=== PATIENT | female | born 1965 ===

== ENCOUNTER 2022-05-23 06:09 | Observation (INO) ==
[~2022-05-23 06:09] MED LIST: LACTATED RINGERS 1,000 ML IV SCH; cefOXitin 1,000 MG in SODIUM CHLORIDE 0.9% 100 ML IV ONE
[2022-05-23] MEDS ORDERED: MIDAZOLAM 2 MG/2 ML VIAL ONE (06:19)
[2022-05-23] MEDS ORDERED: fentaNYL 100 MCG/2 ML VIAL ONE (06:19)
[2022-05-23] MEDS ORDERED: propofoL 200 MG/20 ML VIAL IV ONE (06:20)
[2022-05-23] MEDS ORDERED: LIDOCAINE 2% 5 ML VIAL ONE (06:20)
[2022-05-23] MEDS ORDERED: LIDOCAINE 1%/EPI INJ 20 ML VIAL ONE (06:31)
[2022-05-23] MEDS ORDERED: TISSUE ADHESIVE 1 EACH APPLICATOR TOP ONE (06:31)
[2022-05-23] MEDS ORDERED: ROCURONIUM 50 MG/5 ML VIAL IV ONE (06:45)
[2022-05-23 06:50] LABS: Basophils # 0.1 10*3/uL (0.0-0.2); Basophils % 0.3 % (0.0-0.8); Eosinophils # 1.1 10*3/uL (0.0-0.87); Eosinophils % 4.6 % (0.00-10.9); Hematocrit 32.1 VOL% (35.7-47.0); Hemoglobin 10.2 GM/DL (12.0-16.0); Immature Granulocytes % 4.3 %; Immature Granulocytes Absolute 1.01 #; Lymphocytes # 1.7 10*3/uL (1.4-4.0); Lymphocytes % 7.1 % (21.3-54.2); Mean Corpuscular HGB Conc 31.8 GM/DL (32-36); Mean Corpuscular Volume 98.8 FL (87-102); Mean Platelet Volume 9.1 FL (9.6-12.0); Monocytes # 1.2 10*3/uL (0.11-0.8); Monocytes % 5.2 % (1.7-12.7); Neutrophils % 78.5 % (38.7-73.9); Platelet Count 637 T/CUMM (130-400); Red Blood Count 3.25 MC/CUMM (3.8-5.5); Red Cell Distribution Width 14.2 % (9.3-17.3); White Blood Count 23.6 T/CUMM (4-12)
[2022-05-23 07:11] LABS: Band Neutrophils 1 % (0-10); Eosinophils 3 % (0-10); Lymphocytes 8 % (20-55); Myelocytes 2 %; Total Cells Counted 100
[2022-05-23 07:12] LABS: Hypochromia Slight; Macrocytosis Slight
[2022-05-23] MEDS ORDERED: ONDANSETRON 4 MG/2 ML VIAL ONE (07:15)
[2022-05-23] MEDS ORDERED: DEXAMETHASONE 4 MG/1 ML VIAL ONE (07:15)
[2022-05-23] MEDS ORDERED: SODIUM CHLORIDE 0.9% 1,000 ML IV ONE (07:23)
[2022-05-23] MEDS ORDERED: PHENYLEPHRINE 1 MG/10 ML SYRINGE IV ONE (07:24)
[2022-05-23] MEDS ORDERED: SEVOFLURANE 1 UNIT/15 MINUTE INH ONE (07:24)
[2022-05-23] MEDS ORDERED: NEOSTIGMINE 10 MG/10 ML VIAL ONE (07:24)
[2022-05-23 07:27] LABS: Calcium 8.9 MG/DL (8.5-10.1); Osmolality,Calculated 298.7 MOS/KG (273-304); Potassium 3.9 MMOL/L (3.5-5.1)
[2022-05-23] MEDS ORDERED: GLYCOPYRROLATE 0.4 MG/2 ML VIAL ONE (07:27)
[2022-05-23] MEDS ORDERED: HYDROmorphone 1 MG/1 ML SYRINGE IV PRN (08:25)
[2022-05-23] MEDS ORDERED: ALBUTEROL/IPRATROPIUM 3 ML NEB RESP TX PRN (08:25)
[2022-05-23] MEDS ORDERED: ONDANSETRON 4 MG/2 ML VIAL IV PRN (08:25)
[2022-05-23] MEDS ORDERED: ACETAMINOPHEN 325 MG TABLET PO PRN (08:25)
[2022-05-23] MEDS ORDERED: ALBUTEROL 2.5 MG/3 ML NEB RESP TX PRN (08:27)
[2022-05-23] MEDS: cefOXitin 1,000 MG in SODIUM CHLORIDE 0.9% 100 ML IV SCH ×2 (12:30→17:43)
[2022-05-23] MEDS: METOPROLOL TARTRATE 25 MG TABLET PO SCH ×2 (12:38→21:25)
[2022-05-23] MEDS: LACTATED RINGERS 1,000 ML IV SCH ×2 (12:38→17:43)
[2022-05-23] MEDS: PANTOPRAZOLE 40 MG TABLET PO SCH (12:39)
[2022-05-23] MEDS: ASPIRIN EC 81 MG TABLET PO SCH (14:54)
[2022-05-23] MEDS: LOSARTAN 50 MG TABLET PO SCH (14:54)
[2022-05-23] MEDS: BUDESONIDE/FORMOTEROL 80-4.5 INHALER 6.9 GM INH SCH (21:25)
[2022-05-24] MEDS: cefOXitin 1,000 MG in SODIUM CHLORIDE 0.9% 100 ML IV SCH ×5 (00:48→23:08)
[2022-05-24] MEDS: LACTATED RINGERS 1,000 ML IV SCH ×3 (02:56→21:20)
[2022-05-24] MEDS: ENOXAPARIN 40 MG/0.4 ML SYRINGE SUBCUT SCH (05:53)
[2022-05-24 06:11] LABS: Basophils # 0.1 10*3/uL (0.0-0.2); Basophils % 0.3 % (0.0-0.8); Eosinophils # 0.8 10*3/uL (0.0-0.87); Eosinophils % 3.4 % (0.00-10.9); Hemoglobin 9.5 GM/DL (12.0-16.0); Immature Granulocytes % 4.3 %; Immature Granulocytes Absolute 1.05 #; Lymphocytes # 2.4 10*3/uL (1.4-4.0); Mean Corpuscular HGB Conc 30.6 GM/DL (32-36); Mean Platelet Volume 9.5 FL (9.6-12.0); Monocytes # 1.5 10*3/uL (0.11-0.8); Monocytes % 6.4 % (1.7-12.7); Neutrophils % 75.6 % (38.7-73.9); Platelet Count 687 T/CUMM (130-400); Red Cell Distribution Width 14.5 % (9.3-17.3); White Blood Count 24.2 T/CUMM (4-12)
[2022-05-24 06:20] LABS: Calcium 8.6 MG/DL (8.5-10.1); Osmolality,Calculated 293.5 MOS/KG (273-304); Potassium 4.1 MMOL/L (3.5-5.1)
[2022-05-24 06:55] LABS: Eosinophils 1 % (0-10); Lymphocytes 9 % (20-55); Platelet Estimate Increased; Total Cells Counted 100
[2022-05-24] MEDS: PANTOPRAZOLE 40 MG TABLET PO SCH (08:51)
[2022-05-24] MEDS: LOSARTAN 50 MG TABLET PO SCH (08:51)
[2022-05-24] MEDS: METOPROLOL TARTRATE 25 MG TABLET PO SCH ×2 (08:51→20:30)
[2022-05-24] MEDS: ASPIRIN EC 81 MG TABLET PO SCH (08:51)
[2022-05-24] MEDS: BUDESONIDE/FORMOTEROL 80-4.5 INHALER 6.9 GM INH SCH ×2 (08:51→20:30)
[2022-05-24 18:27] LABS: Bilirubin,Urine Negative (Negative); Blood, Urine Trace mg/dL (Negative); Glucose,Urine (UA) Negative (Negative); Ketones,Urine Negative (Negative); Nitrite,Urine Negative (Negative); Protein,Urine Negative (Negative); Urine Appearance Clear (Clear); Urine Color Yellow (Yellow); Urine Urobilinogen 0.2 eU/dL (<2.0); Urine pH 5.5 (4.5-8.0)
[2022-05-25] MEDS: cefOXitin 1,000 MG in SODIUM CHLORIDE 0.9% 100 ML IV SCH (06:13)
[2022-05-25] MEDS: ENOXAPARIN 40 MG/0.4 ML SYRINGE SUBCUT SCH (06:14)
[2022-05-25 08:00] LABS: Basophils # 0.1 10*3/uL (0.0-0.2); Basophils % 0.2 % (0.0-0.8); Eosinophils % 4.9 % (0.00-10.9); Hemoglobin 9.6 GM/DL (12.0-16.0); Immature Granulocytes % 2.7 %; Immature Granulocytes Absolute 0.57 #; Lymphocytes # 2.1 10*3/uL (1.4-4.0); Lymphocytes % 9.9 % (21.3-54.2); Monocytes % 4.8 % (1.7-12.7); Neutrophils % 77.5 % (38.7-73.9); Platelet Count 689 T/CUMM (130-400); Red Blood Count 3.07 MC/CUMM (3.8-5.5); Red Cell Distribution Width 14.7 % (9.3-17.3); White Blood Count 21.1 T/CUMM (4-12)
[2022-05-25 08:32] VITALS: BP 116/91
[2022-05-25 08:33] LABS: Anisocytosis Slight; Band Neutrophils 1 % (0-10); Eosinophils 4 % (0-10); Lymphocytes 15 % (20-55); Macrocytosis 1+; Nucleated Red Blood Cells 1 (0-5); Platelet Estimate Increased; Total Cells Counted 100
[2022-05-25 08:36] LABS: Osmolality,Calculated 289.3 MOS/KG (273-304); Potassium 4.5 MMOL/L (3.5-5.1)
[2022-05-25] MEDS: LOSARTAN 50 MG TABLET PO SCH (09:02)
[2022-05-25] MEDS: PANTOPRAZOLE 40 MG TABLET PO SCH (09:03)
[2022-05-25] MEDS: ASPIRIN EC 81 MG TABLET PO SCH (09:03)
[2022-05-25] MEDS: BUDESONIDE/FORMOTEROL 80-4.5 INHALER 6.9 GM INH SCH (09:03)
[2022-05-25] MEDS: LACTATED RINGERS 1,000 ML IV SCH ×2 (09:03→09:44)
[2022-05-25] MEDS: METOPROLOL TARTRATE 25 MG TABLET PO SCH (09:03)
[2022-05-25] MEDS ORDERED: cefOXitin 1,000 MG in SODIUM CHLORIDE 0.9% 100 ML IV SCH (18:00)
[2022-05-26] MEDS ORDERED: ENOXAPARIN 30 MG/0.3 ML SYRINGE SUBCUT SCH (06:00)
== END 2022-05-25 12:30 | disposition home or self-care (01) ==
LOC: N.3E 06:09 → N.OR 06:09 → N.SDSINP 06:14 → N.3E 13:30
PROVIDERS: ADMIT Surgery; ATTEND Surgery